=== PATIENT | female | born 1965 | race Caucasian/White ===

== ENCOUNTER 2018-08-06 15:39 | Emergency (ER) | payer MEDICAID ==
[~2018-08-06] VITALS: Ht 160 cm; Wt 91.6 kg
[2018-08-06 15:53] VITALS: Ht 160 cm; Wt 91.6 kg
[2018-08-06 18:32] LABS: BASOPHIL % 0.1 % (0-2); PLATELET COUNT 293 x10^3mcL (130-400); RED CELL DISTRIBUTION WIDTH 13.6 % (11.5-14.5)
[2018-08-06 18:44] LABS: CALCIUM 8.8 mg/dL (8.5-10.1); CARBON DIOXIDE 27.9 mmol/L (21-32); CHLORIDE SERUM 104 mmol/L (98-107); CREATININE SERUM 0.6 mg/dL (0.6-1.0); GFR1 > 60 mL/min; GLUCOSE SERUM 114 mg/dL (74-106); POTASSIUM SERUM 3.7 mmol/L (3.5-5.1); SODIUM SERUM 139 mmol/L (136-145)
[2018-08-06 18:49] LABS: ALKALINE PHOSPHATASE 80 U/L (46-116); ALT/SGPT 33 U/L (14-59); AST/SGOT 17 U/L (15-37); BILIRUBIN TOTAL 0.44 mg/dL (0.20-1.00); TOTAL PROTEIN, SERUM 6.7 g/dL (6.4-8.2)
[2018-08-06 18:51] LABS: ALBUMIN 3.1 g/dL (3.4-5.0)
[2018-08-06 19:52] VITALS: BP 106/69
== END 2018-08-06 19:52 | disposition home or self-care (01) ==
LOC: ED 15:39
PROVIDERS: Emergency Medicine
DX: K57.92 Diverticulitis of intestine, part unspecified, without perforation or abscess without bleeding (principal); F17.210 Nicotine dependence, cigarettes, uncomplicated; Z90.49 Acquired absence of other specified parts of digestive tract
CPT/HCPCS: 36415; 99406

== ENCOUNTER 2018-08-09 10:11 | Emergency (ER) | payer MEDICAID ==
[~2018-08-09] VITALS: Ht 160 cm; Wt 93.0 kg
[2018-08-09 10:16] VITALS: Ht 160 cm; Wt 93.0 kg
[2018-08-09 11:07] LABS: BASOPHIL % 0.7 % (0-2); PLATELET COUNT 321 x10^3mcL (130-400); RED CELL DISTRIBUTION WIDTH 13.2 % (11.5-14.5)
[2018-08-09 11:13] LABS: CALCIUM 8.5 mg/dL (8.5-10.1); CARBON DIOXIDE 28.6 mmol/L (21-32); CHLORIDE SERUM 104 mmol/L (98-107); CREATININE SERUM 0.7 mg/dL (0.6-1.0); GFR1 > 60 mL/min; GLUCOSE SERUM 95 mg/dL (74-106); SODIUM SERUM 140 mmol/L (136-145)
[2018-08-09 11:19] LABS: ALBUMIN 3.4 g/dL (3.4-5.0); ALKALINE PHOSPHATASE 73 U/L (46-116); ALT/SGPT 32 U/L (14-59); AST/SGOT 21 U/L (15-37); BILIRUBIN TOTAL 0.5 mg/dL (0.20-1.00); LIPASE 64 IU/L (73-393); TOTAL PROTEIN, SERUM 7.4 g/dL (6.4-8.2)
[2018-08-09 11:54] VITALS: BP 95/67
== END 2018-08-09 11:54 | disposition home or self-care (01) ==
LOC: ED 10:11
PROVIDERS: Emergency Medicine
DX: R10.10 Upper abdominal pain, unspecified (principal); R63.0 Anorexia
CPT/HCPCS: 36415

== ENCOUNTER 2018-11-01 21:16 | Emergency (ER) | payer MEDICAID ==
[~2018-11-01] VITALS: Ht 160 cm; Wt 100.7 kg
[2018-11-01 21:29] VITALS: Ht 160 cm; Wt 100.7 kg
[2018-11-01 23:33] VITALS: BP 140/93
== END 2018-11-01 23:33 | disposition home or self-care (01) ==
LOC: ED 21:16
DX: J20.8 Acute bronchitis due to other specified organisms (principal); N39.3 Stress incontinence (female) (male); R03.0 Elevated blood-pressure reading, without diagnosis of hypertension; Z87.891 Personal history of nicotine dependence; Z98.890 Other specified postprocedural states
CPT/HCPCS: J1100

== ENCOUNTER 2018-11-04 00:36 | Emergency (ER) | payer MEDICAID ==
[~2018-11-04] VITALS: Ht 160 cm; Wt 99.8 kg
[2018-11-04 00:39] VITALS: Ht 160 cm; Wt 99.8 kg
[2018-11-04 02:15] VITALS: BP 130/72
== END 2018-11-04 02:15 | disposition home or self-care (01) ==
LOC: ED 00:36
DX: J45.909 Unspecified asthma, uncomplicated (principal); F17.210 Nicotine dependence, cigarettes, uncomplicated
CPT/HCPCS: 99406; J2930; J7620